=== PATIENT | female | born 1985 | race African-American/Black ===

== ENCOUNTER 2017-04-17 09:50 | Emergency (ER) | payer OTHER ==
[~2017-04-17] VITALS: Ht 152.4 cm; Wt 118.8 kg
[~2017-04-17 09:50] MED LIST: CYCLOBENZAPRINE5 MG PO; NORCO 5-325 TA1 EACH PO; PREDNISONE 20 M20 MG PO
[2017-04-17 09:52] VITALS: BP 145/92
[2017-04-17] MEDS ORDERED: MOBIC7.5 MG PO (10:42)
== END 2017-04-17 11:48 | disposition home or self-care (01) ==
LOC: ER 09:50
DX: S60.011A Contusion of right thumb without damage to nail, initial encounter (principal); W23.0XXA Caught, crushed, jammed, or pinched between moving objects, initial encounter; Y93.89 Activity, other specified; Y92.89 Other specified places as the place of occurrence of the external cause; Y99.8 Other external cause status

== ENCOUNTER 2017-09-10 16:30 | Emergency (ER) | payer OTHER ==
[~2017-09-10] VITALS: Ht 152.4 cm; Wt 113.4 kg
[~2017-09-10 16:30] MED LIST changes: +MOBIC7.5 MG PO
[2017-09-10] MEDS ORDERED: VENTOLIN HFA 1818 GM INH (16:50)
[2017-09-10] MEDS ORDERED: CLARITIN10 MG PO (16:50)
== END 2017-09-10 17:48 | disposition home or self-care (01) ==
LOC: ER 16:30
DX: J30.9 Allergic rhinitis, unspecified (principal); Z88.8 Allergy status to other drugs, medicaments and biological substances

== ENCOUNTER 2019-04-03 16:48 | Emergency (ER) | payer OTHER ==
[~2019-04-03] VITALS: Ht 152.4 cm; Wt 119.3 kg
[~2019-04-03 16:48] MED LIST changes: +CLARITIN10 MG PO; +VENTOLIN HFA 1818 GM INH
[2019-04-03 17:26] LABS: URINE BILIRUBIN NEGATIVE (Negative); URINE BLOOD 3+ (Negative); URINE CLARITY CLEAR; URINE COLOR YELLOW; URINE GLUCOSE-RANDOM* NEGATIVE (Negative); URINE KETONES NEGATIVE (Negative); URINE NITRITE-REFLEX NEGATIVE (Negative); URINE PROTEIN (DIPSTICK) NEGATIVE (Negative); URINE UROBILINOGEN 0.2 E.U./dl (0.2-1.0)
[2019-04-03 17:28] LABS: URINE LEUKOCYTES-REFLEX 3+ (Negative)
[2019-04-03 17:42] LABS: SQUAMOUS 4-10 Moderate /LPF (0-3)
[2019-04-03 17:43] LABS: CASTS None Seen /LPF (None Seen); CRYSTALS None Seen /LPF (None Seen); URINE RBC 3-10 Few /HPF (0-2)
[2019-04-03 18:36] VITALS: BP 177/98
[2019-04-03] MEDS ORDERED: MACROBID 100 M100 M2 PO (18:42)
== END 2019-04-03 19:20 | disposition home or self-care (01) ==
LOC: ER 16:48
PROVIDERS: Nurse Practitioner Family
DX: N39.0 Urinary tract infection, site not specified (principal); N76.0 Acute vaginitis; J45.909 Unspecified asthma, uncomplicated; E66.9 Obesity, unspecified; Z68.43 Body mass index [BMI] 50.0-59.9, adult; Z20.2 Contact with and (suspected) exposure to infections with a predominantly sexual mode of transmission; Z90.49 Acquired absence of other specified parts of digestive tract; Z98.890 Other specified postprocedural states; Z91.018 Allergy to other foods

== ENCOUNTER 2020-02-20 20:06 | Emergency (ER) | payer OTHER ==
[~2020-02-20] VITALS: Ht 149.9 cm; Wt 131.1 kg
[~2020-02-20 20:06] MED LIST changes: +MACROBID 100 M100 M2 PO
[2020-02-20] MEDS ORDERED: EPIPEN 2-P0.3 MG/0.3 IM (21:37)
[2020-02-20 21:59] VITALS: BP 143/83
== END 2020-02-20 22:02 | disposition home or self-care (01) ==
LOC: ER 20:06
DX: T78.09XA Anaphylactic reaction due to other food products, initial encounter (principal); J45.909 Unspecified asthma, uncomplicated; Z91.018 Allergy to other foods; Z98.890 Other specified postprocedural states; Y92.89 Other specified places as the place of occurrence of the external cause